=== PATIENT | female | born 1965 | race African-American/Black ===

== ENCOUNTER 2019-04-04 15:31 | Emergency (ER) | payer OTHER ==
[~2019-04-04] VITALS: Ht 147.3 cm; Wt 75.8 kg
[~2019-04-04 15:31] MED LIST: ANXIETY MED; KEFLEX500 MG PO; MEDROLDOSEPACK PO
[2019-04-04 18:14] VITALS: BP 158/101
== END 2019-04-04 18:14 | disposition home or self-care (01) ==
LOC: ER 15:31
DX: B02.9 Zoster without complications (principal); M54.2 Cervicalgia; I10 Essential (primary) hypertension; J45.909 Unspecified asthma, uncomplicated; F17.210 Nicotine dependence, cigarettes, uncomplicated